=== PATIENT | female | born 1970 | race Caucasian/White ===

== ENCOUNTER 2019-11-25 11:20 | Emergency (ER) | payer MEDICAID, SELFPAY ==
[2019-11-25 11:38] VITALS: BP 122/91; PULSE 99; RESP 18; TEMP 36.4; O2SAT 99; BMI 24.1
--- NOTE | 2019-11-25 11:41 | XR_ITS ---
WS: [id number] RIGHT ANKLE: 3 VIEW(S) TECHNIQUE: AP, oblique(s) and lateral. HISTORY: injury COMPARISON: None available. Bimalleolar fractures. Transverse fracture of the medial malleolus with displacement by 7.6 mm. Obliq ue fracture involving the distal fibula displaced by 6.5 mm. Ankle mortise is interrupted. Medial ank le mortise measures 5 mm. Posterior malleolus is intact. No significant degenerative changes at the joint spaces. Large amount of soft tissue edema around the ankle. XR/XR ankle RT min 3V* [id number] IMPRESSION: 1. Mildly displaced fractures involving the medial and lateral malleolus. 2. Disruption of the ankle mortise.
--- NOTE | 2019-11-25 12:27 | ED_ITS ---
HPI - Extremity Problem General: Chief complaint: Extremity Injury, Lower Stated complaint: Ankle pain Time Seen by Provider: 11/25/19 12:16 History of Present Illness: HPI Narrative: Patient jumped off a tailgate 2 hours ago landing on right ankle and had immediate pain. Now has swelling and inability to bear weight. MD Complaint: extremity pain, extremity swelling, joint swelling and joint paint Onset (ago): hour(s) Pain Consistency: constant Location: right Severity scale (1-10): 7 Quality: aching Radiation: none Exacerbating factors: range of motion and weight bearing Associated symptoms: Deny chest pain, fever(s) or rash Review of Systems Const: Denies: fever, chills or body aches Eyes: Denies: change in vision or blurry vision ENMT: Denies: throat pain or nasal congestion Card: Denies: chest pain or shortness of breath on exertion Resp: Denies: shortness of breath, productive cough or non-productive cough GI: Denies: abdominal pain, nausea or vomiting Musc: Reports: joint pain, joint swelling and limited range of motion; Denies: extremity pain Skin/Breast: Denies: rash Neuro: Denies: headache Psych: Denies: anxiety or depression Benja/Lymph: Denies: easy bruising PFSH ED PFSH: Statuses (acute, chronic, etc) shown below reflect problem list status as previously entered and may not be historically accurate Social History Smoking and tobacco status: current every day smoker Physical Exam Const: COMMON NORMALS: no apparent distress, average body habitus and oriented x3 HENMT: COMMON NORMALS: normocephalic HEAD & SCALP: normal to inspection and normocephalic FACE & SINUS: normal facial exam Eye: COMMON NORMALS: conjunctivae normal GENERAL EYE: normal appearance of both eyes CONJUNCTIVA: Yes conjunctivae normal Neck/C-Spine: COMMON NORMALS: no JVD Chest: COMMONS NORMALS: inspection of chest normal Resp: COMMON NORMALS: normal respiratory effort and clear to auscultation bilaterally AUSCULTATION: clear to auscultation bilaterally Cardio: COMMON NORMALS: no JVD, regular rate and regular rhythm RATE: regular rate RHYTHM: regular rhythm GI: COMMON NORMALS: normal to inspection, nondistended, normoactive bowel sounds Extremity: COMMON NORMALS: normal to inspection and full ROM RIGHT LOWER EXTREMITY: Yes ankle joint (Swelling and tenderness good neurovascular exam) Right ankle: Yes neurovascular exam Neuro: COMMON NORMALS: oriented x3 Course Vital Signs: Vital signs: Vital Signs Temperature 97.6 F 11/25/19 11:38 Pulse Rate 99 11/25/19 11:38 Respiratory Rate 18 11/25/19 11:38 Blood Pressure 122/91 11/25/19 11:38 Pulse Oximetry 99 11/25/19 11:38 MDM - Extremity (Nontraumatic) MDM Narrative: Medical decision making narrative: Discussed patient's x-ray with Dr. Rowe. I contacted Dr. Junior Martin on-call and spoke to her on the phone about patient and she reviewed the x-ray was with me while is on the phone she asked that I send patient over for clinic this afternoon to get on the schedule and that we put a posterior splint on with slight inversion. Discharge Plan Discharge Patient Disposition: Home, Self-Care Clinical Impression: Ankle fracture Qualifiers: Encounter type: initial encounter Fracture type: closed Laterality: right Qualified Code(s): S82.891A - Other fracture of right lower leg, initial encounter for closed fracture Condition: Stable Prescriptions: New hydrocodone-acetaminophen 5-325 mg tablet 1 tab PO Q6H PRN (Reason: pain) Qty: 10 RF: 0 Referrals: Wenceslao Nowak DO [Family Provider] - Discharge Diet: As Directed Discharge Activity: Use walker/crutches as instructed Patient Instructions: Ankle Fracture (ED) Activity Restrictions/Additional Instructions: Follow-up Dr. Pacheco's afternoon Ortho clinic do not take anything by mouth until seen by Dr. Pacheco take medicine as directed. 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
[2019-11-25] MEDS: HYDROcodone-acetaminophen 7.5-325 mg Tablet 1 TAB PO (12:42)
--- NOTE | 2019-11-25 12:44 | DCPLANNER ---
freight manager was asked to schedule a follow up appointment for patient with Dr. Santos for this afternoon. freight manager called the ortho clinic, spoke with Pat, gave Pat patients information. freight manager explained the Dr. Santos wanted to see patient this afternoon, a follow up appointment was scheduled for Monday, November 25, 2019 at 3:30. freight manager informed ED physician and patient about appointment information.
[2019-11-25 13:40] VITALS: BP 127/81; PULSE 88; RESP 18; O2SAT 100
--- NOTE | 2019-12-17 14:35 | DCPLANNER ---
Patient did attend appointment scheduled for 11.25.19 with ortho.
== END 2019-11-25 13:40 | disposition home or self-care (01) ==
PROVIDERS: Emergency Provider Nurse Practitioner Family; Family Provider Internal Medicine
DX: S82.51XA Displaced fracture of medial malleolus of right tibia, initial encounter for closed fracture (principal); S82.61XA Displaced fracture of lateral malleolus of right fibula, initial encounter for closed fracture; W17.89XA Other fall from one level to another, initial encounter; F17.210 Nicotine dependence, cigarettes, uncomplicated
CPT/HCPCS: 29515; 73610; 99281; 99283; E0114

== ENCOUNTER 2019-11-26 13:17 | Day surgery (SDC) | payer MEDICAID, SELFPAY ==
[2019-11-25 16:57] VITALS: BMI 25.0
[2019-11-26] VITALS (30 sets, daily range): BP systolic 92–135; BP diastolic 69–95; PULSE 72–104; RESP 13–26; TEMP 36.2–36.8; O2SAT 94–100
--- NOTE | 2019-11-26 | SCC_ITS ---
Procedure Done: Open reduction internal fixation right trimalleolar ankle fracture utilizing the Natalya lateral fibular plate, 4-hole. 195 seconds of fluoroscopic guidance, for a cumulative dose of 7.34 mGy, was provided to Dr. Palomares by the radiology department. C-arm images of the RIGHT ankle were saved for the patient's permanent record. [facility]
--- NOTE | 2019-11-26 | XR_ITS ---
WS: [id number] C-ARM RADIOGRAPHS RIGHT ANKLE; 4 IMAGES HISTORY: OR PICS COMPARISON: 11/25/2019 Intraoperative fixation of bimalleolar fractures. Plate and screw fixation in the distal fibula and s crew fixation of the medial malleolus. Ankle mortise widening has been reduced. XR/XR ankle RT 1V [id number] IMPRESSION: Satisfactory bimalleolar ORIF. Normal fracture alignment. Reduction of the widened ankle mortise.
--- NOTE | 2019-11-26 14:24 | ANES.PREANE2 ---
Pre-Anesthetic Assessment Pre-Anesthetic Assessment: Height/Weight: Height 1.65 m Weight 68.039 kg Preop Diagnosis: Bimalleolar right ankle fracture Proposed Procedure: Operation Date: 11/26/19 15:00 Proposed Procedures p ORIF Ankle Bimallelor Fracture(Right) - Sonali Santos MD Last intake: Intake Last Liquid Date 11/26/19 Last Liquid Time 10:00 Last Solid Date 11/25/19 Last Solid Time 21:00 Social: Packs per day: 1 Pack years: 35 Exam: Pre-Anes Outpt Exam: alert, oriented x 3, clear to auscultation bilaterally and regular rate & rhythm Airway: Submandibular: WNL Cervical ROM: WNL MP: 1 Dentition: False CV/HEM: Comments: 2 blocks/2FOS GI: GI: GERD Musc/skel: Musc/skel: Lower Back Pain Comments: right radiculopathy Anesthetic Plan: ASA status: 2 Anesthesia: General PFSH Anesthesia PFSH: Social History Smoking and tobacco status: current every day smoker Alcohol intake: never Data Anesthesia Cardiac Studies: No Data to Display
[2019-11-26 14:40] LABS: Basophils % 0.3 %; Eosinophils # 0.1 10^3/uL (0.0-0.8); Eosinophils % 1.4 %; Hemoglobin 13.7 g/dL (11.5-15.3); Lymphocytes % 23.1 %; Mean Corpuscular HGB Conc 32.6 g/dL (30.0-36.0); Mean Corpuscular Hemoglobin 28.4 pg (28.0-34.0); Mean Platelet Volume 12.4 fL (7.4-10.4); Monocytes # 0.5 10^3/uL (0.2-0.9); Monocytes % 6.1 %; Nucleated Red Blood Cells % 0 %; Platelet Count 228 10^3/cmm (130-400); Red Blood Count 4.83 10^6/uL (4.1-5.3); Red Cell Distribution Width 12.5 % (12.1-15.1); White Blood Count 8.8 10^3/uL (4.0-10.0)
[2019-11-26] MEDS: fentaNYL 50 mcg/mL INJ 2mL 100 MCG IVP (14:45)
[2019-11-26] MEDS: midazolam 1 mg/mL INJ 5 ML 5 MG IVP (14:45)
--- NOTE | 2019-11-26 14:54 | ANES.PROC ---
Anesthesia Procedures Procedure/Date: 11/26/19 Right popliteal nerve block Procedure Narrative: R&B's of right popliteal nerve block for ORIF right ankle disc'd. Verbal and written consent obtained. Versed 2+1+1mg, Fentanyl 50ug. Nerve stimulator at 0.8mAMPS. 30cc of Ropvicaine 0.5% + Lido 2% with epi in 3:1 mixture in 5cc increments without problems/complications Nerve Block ^: Nerve Block 1: Main Anesthesia: general anesthesia Time Out Performed: Yes Consent: requested by attending/covering physician, from patient, risks and benefits reviewed and patient agrees to proceed Nerve block location: popliteal Anesthesia monitors applied: pulse oximetry and oxygen Nerve block position: lateral Anesthetic Used: lidocaine 2% and ropivicaine 0.5% Amount of anesthesia used (mL): 30 Ultrasound used to: other Nerve Stimulator Used?: Yes Interscalene/Femoral BLK: 2 stimuplex 22 g needle used for position and inplane approach Injection: neg aspiration of heme Patient Tolerated Procedure: well and no complications Complications: none
[2019-11-26 14:58] LABS: Blood Urea Nitrogen 16 mg/dL (6-20); Calcium 9.6 mg/dL (8.5-10.5); Carbon Dioxide 27 mmol/L (22-29); Chloride 101 mmol/L (98-107); Glomerular Filtration Rate 105.4 mL/min (90-130); Glucose 106 mg/dL (65-115); Osmolality Calculated 287 mOsm/kg (285-295); Sodium 140 mmol/L (136-145)
[2019-11-26] MEDS: sodium chloride 0.9% 1,000 ML 30 ML IV (14:59)
--- NOTE | 2019-11-26 15:30 | P.HPUD_ITS ---
H&P update H&P Update: DATE OF SURGERY/PROCEDURE: 11/26/19 DATE H&P PERFORMED: 08/04 H&P UPDATE INFORMATION: H&P completed within last 30 days, No changes to prior documentation and H&P is in [facility] EMR on date indicated PREOP DIAGNOSIS: Bimalleolar right ankle fracture PLANNED PROCEDURE: Operation Date: 11/26/19 15:00 Proposed Procedures p ORIF Ankle Bimallelor Fracture(Right) - Sonali Santos MD Full H&P Medications/Allergies: Current Medications: Current Medications Generic Name Dose Route Start Last Admin Trade Name Freq PRN Reason Stop Dose Admin Sodium Chloride 1,000 mls @ 30 ml s/hr 11/26/19 14:45 11/26/19 14:59 Sodium Chloride 0.9% IV 11/27/19 14:44 30 mls/hr .Q24H CYNDI Administration Perinent History: Social History: Social History Smoking and tobacco status: current every day smoker Alcohol intake: never
[2019-11-26] MEDS: ceFAZolin 1,000 mg SDV 1000 MG IRRIGATION (16:31)
[2019-11-26] MEDS: silvasorb gel 44.4 mL 1 APPLIC TOPICAL (17:26)
--- NOTE | 2019-11-26 17:47 | SUR.PHASEI ---
1745 PATIENT TO PACU AT THIS TIME. RR EVEN AND UNLABORED. PLACED ON SIMPLE MASK AT 8L, SPO2 99%. DRESSING TO LEFT FOOT, CDI, WAYNE NOTED WITH WALKING BOOT, CAP REFILL LESS THAN 3 SECONDS. TOES COOL TO THE TOUCH.
--- NOTE | 2019-11-26 17:54 | PM.OP ---
Operative Report Date of procedure: November 26, 2019 Pre-op Diagnosis: Bimalleolar right ankle fracture Post-op diagnosis: same Procedure Done: Open reduction internal fixation right trimalleolar ankle fracture utilizing the Natalya lateral fibular plate, 4-hole. Pathology: none sent Surgeon: Sonali Santos Quality Coordinator: [facility] OR technicians Anesthesia: General (LMA) Estimated blood loss (mL): 10 Tourniquet time (min): 80 IV fluids (mL): 1,000 Urine output: 0 mL, no Uriarte Complications: None she Findings: Comminuted lateral fibular fracture with significant displacement, segmental. Condition: stable Disposition: same day Brief History: This 49-year-old woman jumped from a pickup truck yesterday, and she fell suffering the above injury. She was seen in the emergency department and subsequently in my office. At the time she was seen in my office, we elected to proceed with open reduction internal fixation as definitive treatment for her right bimalleolar ankle fracture. This was scheduled for her today. Risks and complications were discussed with the patient. She understood the plan for surgery. Consents were signed preoperatively. Procedure: Patient was seen in the preoperative holding area and leg was marked. Patient was brought to the operating theater and placed on the operating room table. After undergoing adequate general anesthesia per LMA, the patient's right lower extremity was prepped and draped in usual fashion utilizing DuraPrep. The leg was draped free. Fluoroscopy was used throughout the surgical procedure. We did have a tourniquet high on the right lower extremity. This was elevated to 250 mmHg and total tourniquet time was 80 minutes. Tourniquet elevation followed exsanguination of the leg. A surgical pause was performed. At the time of the surgical pause we identified the site and side of surgery as well as the patient's identity and availability of equipment. We also confirmed appropriate administration of IV antibiotics, Ancef 2 g. Following the above, an incision was made centering over the patient's fibular fracture. The incision was continued proximally distally as necessary to allow access to the fracture. Of note, there was a fracture blister prior to beginning the surgical procedure directly in the midportion of the incision. We elected to proceed with the surgical intervention given the extreme instability of the fracture. Upon evaluation of the fracture, it was noted to be segmental with impacted segmental fragments between the primary proximal and distal fragments. This was elevated out of the fracture line and we were able to determine appropriate positioning for the segmental fragment. We were able to reduce the fracture anatomically. This was held with a clamp while we chose the appropriate length of plate. The [place] 4-hole lateral fibular plate plate was attached with standard technique. We used a combination of locking as well as nonlocking screws. Once the plate was appropriately attached, we irrigated the wound. We then closed the wound with 0 Vicryl in the fascial tissues, 2-0 Monocryl in the subcutaneous tissues, and the skin was closed with skin keyur. Attention was then directed to the medial aspect of the ankle. Once again, we used fluoroscopy and palpation over the fracture to determine a correct entry point for the guidewire of the cannulated screws. A guidewire was passed, and its position was monitored on AP and lateral planes. We were satisfied with the position of the guidewire, and a small incision was made around the guidewires to allow placement of the screws. We did not want to directly reduce the fracture with an incision as the patient had significant swelling as noted by the fracture blister. The 2 guidewires were placed in appropriate position as visualized in AP and lateral planes. We were then able to place headless cannulated screws, each of which was 40 mm in length over the cannulated screws to hold the medial malleolus nicely reduced. Throughout the surgical procedure and at the conclusion of the procedure we did use fluoroscopy. Fluoroscopy was utilized to determine appropriate positioning of the fixation as well as assuring anatomic reduction of the fractures. At the conclusion we obtained AP and lateral images demonstrating the fracture was anatomically reduced. The lateral incisions which were made over the guidewires were closed with a single staple each. Sterile dressing was placed consisting of silver sorb, 4 x 4's, sterile soft roll and an Guille wrap. The patient was placed in a Cam Walker boot and is to remain nonweightbearing. The procedure was well tolerated without complication. Tourniquet time was 80 minutes at 250 mmHg. The patient will be discharged home to follow-up in my office as scheduled.
[2019-11-26] MEDS: fentaNYL 50 mcg/mL INJ 2mL IVP ×2 (18:01→18:11)
[2019-11-26] MEDS: ondansetron 2 mg/ML SDV 2 mL 4 MG IVP (18:19)
[2019-11-26] MEDS: morphine 4 mg/mL SDV 1 mL 2 MG IVP ×2 (18:20→18:26)
[2019-11-26] MEDS: midazolam 1 mg/mL INJ 2 mL IVP (18:40)
[2019-11-26] MEDS: HYDROmorphone 1 mg/mL INJ 1 mL 0.5 MG IVP (18:53)
--- NOTE | 2019-11-26 19:01 | SUR.PHASEI ---
1805 RIGHT ANKLE ELEVATED FOR COMFORT AND FIRST ICE APPLIED.
--- NOTE | 2019-11-26 19:06 | PM.MISC ---
Miscellaneous Note Purpose of Documentation: Patient will require outpatient in a bed status Note: Patient's pain was not well controlled following surgical intervention. She will require outpatient bed overnight for treatment and control of her pain.
--- NOTE | 2019-11-26 19:28 | SUR.PHASEI ---
1914 UNABLE TO CONTROL PATIENTS PAIN. DR. STUART CONTACTED. DR. STUART PUTTING IN OUTPATIENT IN A BED ORDERS.
--- NOTE | 2019-11-26 19:29 | SUR.PHASEI ---
1924 PATIENT RATES PAIN 5/10 AT THIS TIME. WANTS TO GO HOME. TOLERATING CRACKERS AND SPRITE. FAMILY PRESENT. FAMILY WILL BE STAYING WITH PATIENT OVER NIGHT. DR. STUART NOTIFIED.
[2019-11-26] MEDS: oxyCODONE-APAP 5-325 mg Tablet 1 TAB PO (19:44)
--- NOTE | 2019-11-26 19:57 | SUR.PHASEI ---
1925 PATIENT TO OPS. PAIN 5/10. PATIENT READY TO GO HOME. DRESSING INTACT TO RIGHT ANKLE WITH FIRST ICE. CAP REFILL LESS THAN 3 SECONDS.
== END 2019-11-26 19:51 | disposition home or self-care (01) ==
PROVIDERS: Family Provider Internal Medicine; PCP Internal Medicine; Visit Provider Specialist
PROC: (CPT 27822; principal; 2019-11-26 14:40)
DX: S82.841A Displaced bimalleolar fracture of right lower leg, initial encounter for closed fracture (principal); W17.89XA Other fall from one level to another, initial encounter; F17.210 Nicotine dependence, cigarettes, uncomplicated
CPT/HCPCS: 27822; 12345; 73600; 76000; 80048; 85025; 96365; 96374; 96375; C1713; J0131; J0690; J1170; J2001; J2250; J2270; J2405; J2704; J2795; J3010; J3490; J7030

== ENCOUNTER → 2019-12-11 15:45 | Outpatient (BNVA) | payer MEDICAID, SELFPAY | PROVIDERS: Family Provider Internal Medicine; PCP Internal Medicine; Visit Provider Specialist | DX: S82.841A Displaced bimalleolar fracture of right lower leg, initial encounter for closed fracture (principal); X58.XXXA Exposure to other specified factors, initial encounter | CPT/HCPCS: 73610 ==

== ENCOUNTER → 2019-12-25 10:33 | Outpatient (BNVA) | payer MEDICAID, SELFPAY | PROVIDERS: Family Provider Internal Medicine; PCP Internal Medicine; Visit Provider Specialist | DX: S82.841A Displaced bimalleolar fracture of right lower leg, initial encounter for closed fracture (principal); X58.XXXA Exposure to other specified factors, initial encounter | CPT/HCPCS: 73610 ==

== ENCOUNTER 2019-12-25 14:23 | Outpatient (CLI) | payer MEDICAID, SELFPAY | END 2019-12-25 14:24 | disposition home or self-care (01) | LOC: SPT 14:23 | PROVIDERS: Family Provider Internal Medicine; PCP Internal Medicine; Visit Provider Specialist | DX: Z46.89 Encounter for fitting and adjustment of other specified devices (principal); S82.841D Displaced bimalleolar fracture of right lower leg, subsequent encounter for closed fracture with routine healing; X58.XXXD Exposure to other specified factors, subsequent encounter | CPT/HCPCS: 11042; 99203; G0463; L4361 ==

== ENCOUNTER 2020-01-09 13:00 | Outpatient (CLI) | payer MEDICAID, SELFPAY ==
--- NOTE | 2020-01-09 13:13 | USCV_ITS ---
Patricia Ashraf Age: 49 Gender: F : 1970 Exam Date: 01/09/2020 13:10 Ordering Phys: Ivania Gomez DO Technologist: Babita Guy Exam Location: [facility] [place] Indication: PAIN/REDNESS/NON-HEALING ULCER RIGHT LEFT Brachial 128.00 mmHg Brachial 124.00 mmHg Pressure (mmHg) Waveform Pressure (mmHg) Waveform 136.00 Above Knee 126.00 Below Knee 135.00 [employer]ARDEN [employer]IC 121.00 DPA 1.05 Ankle/Brachial Index 82.00 Pre-Exercise Toe Pressure 0.64 Pre-Exercise Toe/Brachial Index FINDINGS Normal resting RAFAEL on the right side. Slightly diminished resting TBI on the right side. PVR waveforms showing loss of dicrotic notch. CONCLUSIONS Features of mild peripheral artery disease on the right side Dr Andre Whelan MD [facility] (Electronically Signed) Final Date: 09 January 2020 18:27 S
== END 2020-01-09 13:01 | disposition home or self-care (01) ==
LOC: RAD 13:05
PROVIDERS: Family Provider Internal Medicine; PCP Internal Medicine; Visit Provider Emergency Medicine
DX: I73.9 Peripheral vascular disease, unspecified (principal); M79.605 Pain in left leg; M79.604 Pain in right leg
CPT/HCPCS: 93922

== ENCOUNTER 2020-01-09 13:30 | Outpatient (RCR) | payer MEDICAID, SELFPAY ==
--- NOTE | 2020-01-08 10:42 | USCV_ITS ---
Patricia Ashraf Age: 49 Gender: F : 1970 Exam Date: 01/08/2020 10:58 Ordering Phys: Ivania Gomez DO Technologist: John Harrison Exam Location: [facility] [place] Indication: HISTORY: Pain, redness, non-healing ulcer. PROCEDURES: Right duplex Venous Insufficiency study of the Deep and Superficial systems was carried out according to normal protocol with the patient in supine positon for deep system and dependent position for the superficial system. FINDINGS: There is no evidence of RIGHT deep vein thrombosis. No evidence of superficial thrombosis in the RIGHT saphenous system. No evidence of reflux was noted in the RIGHT deep venous system. Venous reflux is demonstrated in the RIGHT greater saphenous vein with a spectral Doppler display of greater than 500 milliseconds below the knee. No venous reflux noted in the RIGHT small saphenous vein. CONCLUSIONS No evidence of DVT in the above-mentioned identifiable veins. Significant venous reflux of greater than 500 ms was noted at the below-knee segment of the greater saphenous vein on the right side. This venous segment was found to be greater than 1 cm deep from the surface with a venous diameter of 0.42 cm and the reflux time of 1.45- second. The venous dimensions and depth from the surface of the other venous segments are as mentioned above. No similar previous studies are available for comparison Dr Andre Whelan MD [facility] (Electronically Signed) Final Date: 08 January 2020 12:43 S
== END 2020-01-14 23:59 | disposition home or self-care (01) ==
LOC: RAD 13:30
PROVIDERS: Family Provider Internal Medicine; PCP Internal Medicine; Visit Provider Nurse Practitioner Family
DX: T81.89XA Other complications of procedures, not elsewhere classified, initial encounter (principal); Y83.8 Other surgical procedures as the cause of abnormal reaction of the patient, or of later complication, without mention of misadventure at the time of the procedure; M79.661 Pain in right lower leg; F17.210 Nicotine dependence, cigarettes, uncomplicated
CPT/HCPCS: 11042; 87070; 87077; 87176; 87186; 87205; 93971; 99203; G0463

== ENCOUNTER 2020-01-15 10:52 | Outpatient (RCR) | payer MEDICAID, SELFPAY | END 2020-02-13 23:59 | disposition home or self-care (01) | LOC: WOUND 10:52 | PROVIDERS: Family Provider Internal Medicine; PCP Internal Medicine; Visit Provider Thoracic Surgery (Cardiothoracic Vascular Surgery) | DX: Z09 Encounter for follow-up examination after completed treatment for conditions other than malignant neoplasm (principal); S82.841A Displaced bimalleolar fracture of right lower leg, initial encounter for closed fracture; X58.XXXA Exposure to other specified factors, initial encounter | CPT/HCPCS: 73610; 99211 ==

== ENCOUNTER → 2020-02-11 11:57 | Outpatient (BNVA) | payer MEDICAID, SELFPAY | PROVIDERS: Family Provider Internal Medicine; PCP Internal Medicine; Visit Provider Specialist | DX: S82.841A Displaced bimalleolar fracture of right lower leg, initial encounter for closed fracture (principal) | CPT/HCPCS: 73610 ==

== ENCOUNTER 2020-02-11 13:18 | Outpatient (CLI) | payer MEDICAID, SELFPAY | END 2020-02-11 13:19 | disposition home or self-care (01) | LOC: SPT 13:19 | PROVIDERS: Family Provider Internal Medicine; PCP Internal Medicine; Visit Provider Specialist | DX: Z46.89 Encounter for fitting and adjustment of other specified devices (principal); S82.841D Displaced bimalleolar fracture of right lower leg, subsequent encounter for closed fracture with routine healing; X58.XXXD Exposure to other specified factors, subsequent encounter | CPT/HCPCS: L1902 ==

== ENCOUNTER → 2020-03-12 11:31 | Outpatient (BNVA) | payer MEDICAID, SELFPAY | PROVIDERS: Family Provider Internal Medicine; PCP Internal Medicine; Visit Provider Specialist | DX: S82.841A Displaced bimalleolar fracture of right lower leg, initial encounter for closed fracture (principal); X58.XXXA Exposure to other specified factors, initial encounter | CPT/HCPCS: 73610 ==

== ENCOUNTER → 2020-11-06 09:39 | Outpatient (BNVA) | payer MEDICAID, SELFPAY | PROVIDERS: Family Provider Internal Medicine; PCP Internal Medicine; Visit Provider Obstetrics & Gynecology | DX: N39.3 Stress incontinence (female) (male) (principal) | CPT/HCPCS: 81000 ==

== ENCOUNTER 2021-05-06 06:23 | Emergency (ER) | payer MEDICAID, SELFPAY ==
--- NOTE | 2021-05-06 06:26 | XR_ITS ---
WS: [id number] Portable AP upright chest, 05/06/2021 Clinical Data: dyspnea/cough Comparison: None. Findings: There is a peripheral patchy opacity in the right lower lung. The left lung is clear. No no dules, masses or effusions are seen. The heart is normal. The pulmonary vascularity is not increased and there is no pneumothorax. XR/XR chest 1V portable [id number] Impression: Patchy opacity in right lower lung which may represent pneumonia.
[2021-05-06 06:27] VITALS: BP 129/84; PULSE 93; RESP 18; TEMP 37.7; O2SAT 93; BMI 28.3
[2021-05-06 07:35] VITALS: O2SAT 92; O2SAT 93
--- NOTE | 2021-05-06 07:37 | W.ED.COVID ---
HPI - COVID General: Chief Complaint: Shortness of Breath/Dyspnea Stated Complaint: sob, covid positive Time Seen by Provider: 05/06/21 06:25 Triage information: Has fever, cough or shortness of breath. Exposure to COVID + person last 14 days History of Present Illness: HPI Narrative: 50-year-old female presents emergency room initially for a BM infusion. When she first arrived her oxygen sat was 87%. She been diagnosed 1 week ago at [facility] with Covid. She was sent here for monoclonal antibody infusion due to her history of COPD. She still has a bit of a cough she has been running low-grade fever she not had any vomiting diarrhea present initially has resolved. Cough is been nonproductive. She denies any chest pain. MD complaint: known COVID positive Prior covid testing: yes, results known Prior testing date: 04/29/21 COVID 19 common symptoms: positive fever(s), chills, cough, non-productive cough, dyspnea, fatigue, body aches and nasal congestion; negative nausea, vomiting or diarrhea COVID 19 other sytmptoms: negative chest pain or requiring oxygen Onset (ago): day(s) (8) Severity: mild Pertinent comorbid conditions: COPD/respiratory disease Treatment prior to arrival: steroids COVID Results: No Data to Display Review of Systems Const: Reports: fever(s), chills, body aches and fatigue ENMT: Reports: nasal congestion Card: Denies: chest pain, edema, dyspnea on exertion or orthopnea Resp: Reports: dyspnea and non-productive cough GI: Denies: abdominal pain, nausea, vomiting, hematemesis, coffee ground emesis, diarrhea, constipation, bloating, hematochezia or melena : Denies: flank pain, difficulty voiding, dysuria, urinary frequency or urinary urgency Skin/Breast: Denies: rash or pruritus PFSH ED PFSH: Medical History Bimalleolar fracture of right ankle Fibromyalgia Family History Family/Other Diabetes paternal aunt Heart disease unknown Grandmother Hypertension maternal Stroke maternal Grandfather Stroke paternal Denies family history of Colon cancer Ovarian cancer Clotting disorder Hyperlipidemia Breast cancer Anesthesia complication Bleeding disorder Uterine cancer Thyroid condition Social History Smoking and tobacco status: current every day smoker cigarettes [ Other cigarette details: less than 1 ppd ] Alcohol intake: never Physical Exam Const: COMMON NORMALS: no acute distress GENERAL APPEARANCE: cooperative and comfortable ORIENTATION/CONSCIOUSNESS: Yes awake, Yes oriented to person, Yes oriented to place and Yes oriented to time HENMT: COMMON NORMALS: normocephalic, atraumatic and hearing grossly normal bilaterally HEAD & SCALP: normocephalic and atraumatic Neck/C-Spine: COMMON NORMALS: no JVD Resp: COMMON NORMALS: normal respiratory effort, No retractions, No use of accessory muscles and clear to auscultation bilaterally AUSCULTATION: clear to auscultation bilaterally Cardio: COMMON NORMALS: no JVD, regular rate, regular rhythm and No murmurs present (Cardio) RATE: regular rate RHYTHM: regular rhythm GI: COMMON NORMALS: Soft to palpation and No hepatosplenomegaly present AUSCULTATION: Yes normoactive bowel sounds PALPATION: Yes Soft to palpation, No Tenderness to palpation present (GI), No Guarding due to palpation present (GI) and Yes No hepatosplenomegaly present Extremity: COMMON NORMALS: normal to inspection, capillary refill normal, no clubbing, cyanosis or edema, no calf tenderness and no pedal edema Neuro: SENSORIUM/ORIENTATION: Yes oriented to person, Yes oriented to place and Yes oriented to time Skin: COMMON NORMALS: no rashes or lesions noted GENERAL SKIN EXAM: no rashes or lesions noted Course Vital Signs: Vital signs: Vital Signs Temperature 99.9 F H 05/06/21 06:27 Pulse Rate 93 05/06/21 06:27 Respiratory Rate 18 05/06/21 06:27 Blood Pressure 129/84 05/06/21 06:27 Pulse Oximetry 93 05/06/21 07:35 MDM - COVID MDM Narrative: Medical decision making narrative: She currently is satting in the mid 90s to low 90s. Home O2 oxygen evaluation with ambulation she is 92%. She does meet qualifications initially presentation was concerned that she was requiring oxygen would not qualify. Discussion with the patient risk benefits alternatives she wishes to proceed we will discharge her from the ER and infuse the monoclonal antibodies as outpatient. COVID Results: No Data to Display Monoclonal Antibody Treatments Inclusion/Exclusion Criteria weight >/= 40 kg receiving immunosuppressive therapy (Is on steroids for COPD) not requiring hospitalization, not requiring oxygen (if not chronically on oxygen) and no increase oxygen requirement (if chronically on oxygen) Patient education patient/family/caregiver received/reviewed fact sheet, Emergency Use Authorization/unapproved drug status discussed with patient/family/caregiver, alternatives to this treatment discussed with patient/family/caregiver, risks and benefits of medication reviewed with patient/family/caregiver, patient/family/caregiver given opportunity for questions, which were answered and patient consents to receiving Monoclonal Antibody Treatment Plan for treatment Meets criteria for Monoclonal Antibody infusion Ordering Monoclonal Antibody infusion for today Other information Patient will be discharged from her ER visit and registered as an outpatient for monoclonal antibody infusion. Discharge Plan Discharge Patient Disposition: Home Clinical Impression: COVID-19, COPD (chronic obstructive pulmonary disease) Condition: Stable Prescriptions: No Action pregabalin [Lyrica] 25 mg capsule 25 mg PO DAILY RF: 0 methocarbamol 500 mg tablet 500 mg PO DAILY RF: 0 fluticasone propionate [Flonase Allergy Relief] 50 mcg/actuation spray,suspension 2 spray intranasal DAILY RF: 0 loratadine [Claritin] 10 mg tablet 20 mg PO DAILY RF: 0 calcium carbonate [Tums] 200 mg calcium (500 mg) tablet,chewable 200 mg PO BID PRNRF: 0 Discharge Orders: Discharge ED (Routine); Ordered 05/06/21 Ordered By: Seth Armendariz Referrals: Wenceslao Nowak DO [Primary Care Provider] - Discharge Diet: Usual diet Discharge Activity: Increase activity as tolerated Patient Instructions: Opioid Safety Coding Level of Care Code ED [employer] Laminator for Cammyg Fwd Exam Comprehensive
== END 2021-05-06 08:08 | disposition home or self-care (01) ==
PROVIDERS: Emergency Provider Family Medicine; PCP Internal Medicine
DX: U07.1 COVID-19 (principal); J44.9 Chronic obstructive pulmonary disease, unspecified; F17.210 Nicotine dependence, cigarettes, uncomplicated
CPT/HCPCS: 71045; 99282

== ENCOUNTER 2021-05-06 06:23 | Outpatient (CLI) | payer MEDICAID, SELFPAY ==
[2021-05-06 10:30] VITALS: BP 123/82; PULSE 109; RESP 14; O2SAT 91
== END 2021-05-06 06:24 | disposition home or self-care (01) ==
LOC: ER 06:23
PROVIDERS: PCP Internal Medicine; Visit Provider Nurse Practitioner
DX: U07.1 COVID-19 (principal)